=== PATIENT | female | born 1945 ===

== ENCOUNTER → 2024-05-15 08:00 | Outpatient (CLI) | payer OTHER ==
[~2024-05-15] VITALS: Ht 152.4 cm; Wt 55.8 kg
[~2024-05-15 08:00] MED LIST: MAGNESIUM500 MG PO; MILLIPRED5 MG PO; NIFEDIPINE20 MG PO; NORVASC2.5 MG PO; OMEGA-31000 MG PO; PANADOL EXTRA500 MG PO; PLAQUENIL PO; TOPROL XL50 M1 PO; ZOCOR20 MG PO
[2024-05-15 13:06] LABS: HEMATOCRIT 30.3 % (36.0-45.00); HEMOGLOBIN 10.1 g/dL (12.0-15.00); MEAN CORPUSCULAR HEMOGLOBIN 28.4 pg (27.00-32.0); MEAN CORPUSCULAR HGB CONC 33.4 g/dl (32.0-36.0); PLATELET COUNT 258 K/uL (150-450); RED BLOOD COUNT 3.57 M/uL (4.00-6.00); RED CELL DISTRIBUTION WIDTH 16.3 % (11.5-14.5)
[2024-05-15 13:29] LABS: PH,URINE 6.5 (5.0-8.0); URINE APPEARANCE Clear; URINE BILIRRUBIN Negative (NEGATIVE); URINE BLOOD Negative; URINE COLOR Yellow; URINE GLUCOSE Negative (NEGATIVE); URINE KETONE Negative (NEGATIVE); URINE LEUKOCYTE Trace; URINE NITRATE Negative; URINE PROTEIN 30 (NEGATIVE); URINE UROBILINOGEN 0.2 E.U./dl
[2024-05-15 13:34] LABS: URINE BACTERIA 1322.7 uL (0.0-1933); URINE EPITHELIAL CELLS 8.6 uL (0.0-38.8); URINE RBC 7.1 uL (0.0-20.8); URINE WBC 52.8 uL (0.0-23.2)
[2024-05-15 13:36] LABS: INR 1.05; PARTIAL THROMBOPLASTIN TIME 25.1 SECONDS (22.0-34.0)
[2024-05-15 13:48] LABS: ALBUMIN 3.5 gm/dL (3.4-5.0); BILIRUBIN TOTAL 0.43 mg/dL (0.3-1.2); CALCIUM 9.8 mg/dL (8.5-10.1); CREATININE SERUM 2.13 mg/dL (0.55-1.02); GFR 22.53; GLOBULINA 3.8 G/DL (2.4-3.5); POTASSIUM 4.25 mEq/L (3.5-5.1); TOTAL PROTEIN 7.3 gm/dL (6.4-8.2)
== END | disposition home or self-care (01) ==
LOC: RAD 08:00 → SURH 05-23 12:45 → EDSTATUS 05-23 12:45 → SURH 05-23 13:45
PROVIDERS: ATTEND Orthopaedic Surgery
DX: M19.012 Primary osteoarthritis, left shoulder (principal)

== ENCOUNTER → 2024-06-06 10:36 | Outpatient (CLI) | payer OTHER | END | disposition home or self-care (01) | LOC: LAB 06-05 15:21 | PROVIDERS: ATTEND Psychiatry & Neurology Psychiatry | DX: Z20.822 Contact with and (suspected) exposure to COVID-19 (principal) ==